=== PATIENT | male | born 1970 | race African-American/Black ===

== ENCOUNTER 2016-09-30 07:22 | Emergency (ER) | payer SELFPAY ==
[2016-09-30] MEDS ORDERED: SODIUM CHLOR 0.9% 1000 ML INJ 1,000 ML IV ONE (07:30)
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
[2016-09-30] MEDS ORDERED: TETANUS/DIPHTHERIA TOXOID ADULT 0.5 ML VIAL IM ONE (07:45)
== END 2016-09-30 07:47 | disposition left against medical advice (07) ==
LOC: NEPE 07:22
DX: I83.92 Asymptomatic varicose veins of left lower extremity (principal); Z23 Encounter for immunization
CPT/HCPCS: 90471

== ENCOUNTER 2016-09-30 10:17 | Emergency (ER) | payer SELFPAY ==
[~2016-09-30] VITALS: Ht 177.8 cm; Wt 72.5 kg
[2016-09-30 10:25] VITALS: BP 109/56; PULSE 111; RESP 20; TEMP 98.7; O2SAT 97
== END 2016-09-30 10:35 | disposition left against medical advice (07) ==
LOC: NED 10:17
DX: Z04.9 Encounter for examination and observation for unspecified reason (principal)
CPT/HCPCS: 99281